=== PATIENT | female | born 1980 | race Caucasian/White ===

== ENCOUNTER 2016-10-23 12:04 | Emergency (ER) | payer MEDICAID, OTHER ==
[2016-10-23 12:15] VITALS: BP 124/86; PULSE 103; RESP 20; TEMP 98.4; O2SAT 99
[2016-10-23] MEDS ORDERED: Lidocaine 2% w Epi 1:100,000 Inj IJ ONE (12:33)
--- NOTE | 2016-10-23 12:44 | C.PDOC ---
History Of Present Illness 35 y/o female with hx of bladder prolapse c/o worsening pain and more frequent prolapse. 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 pt has not yet seen a urologist due to insurance issues. pt reports she usually pushes prolapsed part back in and it stays in for a few days, but coming out more often with worse pain to pelvic area that radiates down both legs, with frequent urination. no fever or chills. pt also reports 2 days hx of 2 loose stools per day. no nausea or vomiting Time Seen by Provider: 10/23/16 12:20 Chief Complaint (Nursing): Back Pain History Per: Patient History/Exam Limitations: no limitations Onset/Duration Of Symptoms: Days (months) Current Symptoms Are (Timing): Worse Quality Of Discomfort: "Pain" Severity: Moderate Associated Symptoms: denies: Incontinence, New Weakness, New Numbness Past Medical History Reviewed: Historical Data, Nursing Documentation, Vital Signs Vital Signs: Last Vital Signs Temp 98.4 F 10/23/16 12:13 Pulse 103 H 10/23/16 12:13 Resp 20 10/23/16 12:13 BP 124/86 10/23/16 12:13 Pulse Ox 99 10/25/16 08:04 - Medical History PMH: Anxiety, Asthma, Depression Family History: States: Unknown Family Hx - Social History Hx Tobacco Use: No Hx Alcohol Use: No Hx Substance Use: No - Immunization History Hx Tetanus Toxoid Vaccination: No Hx Influenza Vaccination: No Hx Pneumococcal Vaccination: No Review Of Systems Constitutional: Negative for: Fever, Chills Gastrointestinal: Positive for: Diarrhea. Negative for: Nausea, Vomiting, Abdominal Pain Genitourinary: Positive for: Frequency, Pelvic Pain. Negative for: Dysuria, Incontinence Physical Exam - Physical Exam Appears: Non-toxic, No Acute Distress Skin: Warm, Dry Head: Atraumatic, Normacephalic Neck: Normal ROM Chest: Symmetrical, No Deformity Cardiovascular: Rhythm Regular, No Murmur Respiratory: Normal Breath Sounds, No Rales, No Rhonchi, No Wheezing Gastrointestinal/Abdominal: Bowel Sounds, Soft, No Tenderness Back: No CVA Tenderness Pelvic: No Normal External Exam (soft mass seen proximal to introitus, able to be reduced.), No Vaginal Bleeding, Vaginal Discharge, No Adnexal Tenderness, Other (chaperoned by RN Rosie Parra) Neurological/Psych: Oriented x3, Normal Speech, Normal Cognition ED Course And Treatment O2 Sat by Pulse Oximetry: 99 Medical Decision Making Medical Decision Making: pt with 6+ month of bladder prolapse, with urinary frequency; check ua gc/ chlamydia and upreg; refer to urology Disposition Counseled Patient/Family Regarding: Studies Performed, Diagnosis, Need For Followup - Disposition Referrals: [facility] [Outside] [facility] [Outside] Bernard Owen MD [Staff Provider] - Disposition: HOME/ ROUTINE Disposition Time: 13:43 Condition: STABLE Additional Instructions: Follow up with Medical clinic and also with urologist if you are able to. Tylenol or Ibuprofen for pain if needed. Return to ER for any worsening pain, difficulty urinating or any other concerns. Instructions: Cystocele (ED) Forms: General Discharge Instructions - Clinical Impression Clinical Impression: Cystocele
[2016-10-23 13:26] LABS: SQUAMOUS EPITHIAL 2 /hpf (0-5); URINE BILIRUBIN NEGATIVE (NEGATIVE); URINE BLOOD NEGATIVE (NEGATIVE); URINE CLARITY Clear (Clear); URINE COLOR Yellow (YELLOW); URINE GLUCOSE (UA) NORMAL (Normal); URINE LEUKOCYTE ESTERASE NEG Leu/uL (Negative); URINE NITRATE NEGATIVE (NEGATIVE); URINE PROTEIN NEGATIVE (NEGATIVE); URINE UROBILINOGEN NORMAL mg/dL (0.2-1.0)
== END 2016-10-23 13:54 | disposition home or self-care (01) ==
LOC: C.ER 12:04
DX: N81.10 Cystocele, unspecified (principal)

== ENCOUNTER 2018-03-16 12:52 | Emergency (ER) | payer OTHER ==
--- NOTE | 2018-03-16 13:55 | C.PDOC ---
History Of Present Illness 37 y/o female with history of DM, High cholesterol and asthma presents to ED with c/o generalized weakness and fatigue since yesterday morning. Patient also complains of intermittent tingling and numbness to left sided of body associated with left sided headache localized to back of left eye. Patient admits to mild rhinorrhea and baseline cough secondary to smoking. Patient reprots prior headache and numbness secondary to nerve damage, last seen Dr. Whittaker on 06/2017. Patient admits to chills and x4 episodes of non bloody diarrhea, denies fever, nausea, vomiting, abdominal pain or any other complaints at this time. PMD: Dr. Young Time Seen by Provider: 03/16/18 13:27 Chief Complaint (Nursing): Weakness/Neurological Deficit History Per: Patient History/Exam Limitations: no limitations Onset/Duration Of Symptoms: Days Current Symptoms Are (Timing): Still Present Past Medical History Reviewed: Historical Data, Nursing Documentation, Vital Signs Vital Signs: Last Vital Signs Temp 98.4 F 03/16/18 13:01 Pulse 102 H 03/16/18 13:01 Resp 20 03/16/18 13:01 BP 129/93 H 03/16/18 13:01 Pulse Ox 98 03/16/18 13:01 - Medical History PMH: Anxiety, Asthma, Depression, Rheumatoid Arthritis Surgical History: No Surg Hx Family History: States: No Known Family Hx - Social History Hx Tobacco Use: No Hx Alcohol Use: Yes Hx Substance Use: No - Immunization History Hx Tetanus Toxoid Vaccination: No Hx Influenza Vaccination: No Hx Pneumococcal Vaccination: No Review Of Systems Except As Marked, All Systems Reviewed And Found Negative. (as per HPI) Constitutional: Positive for: Chills. Negative for: Fever Gastrointestinal: Positive for: Diarrhea. Negative for: Nausea, Vomiting, Abdominal Pain Neurological: Positive for: Weakness, Numbness, Headache Physical Exam - Physical Exam Appears: Non-toxic, No Acute Distress, Other (Tired appearing) Skin: Warm, Dry Head: Normacephalic, Tenderness Eye(s): bilateral: PERRL, EOMI Nose: Normal Oral Mucosa: Moist Tongue: Normal Appearing Lips: Normal Appearing Throat: No Erythema, No Exudate Neck: Normal ROM, Trachea Midline Lymphatic: No Adenopathy Chest: Symmetrical Cardiovascular: Rhythm Regular, No Edema, No Murmur Respiratory: Normal Breath Sounds, No Accessory Muscle Use, No Wheezing Gastrointestinal/Abdominal: Soft, No Tenderness Back: Normal Inspection, No Decreased ROM Extremity: Normal ROM, No Pedal Edema, No Deformity, No Swelling Neurological/Psych: Oriented x3, Normal Speech, Normal Cognition, Normal Motor (5/5), Other (subjective decreased light touch sensation to left face. no facial droop) ED Course And Treatment - Laboratory Results Result Diagrams: 03/16/18 13:59 03/16/18 13:59 O2 Sat by Pulse Oximetry: 98 (RA) Pulse Ox Interpretation: Normal Medical Decision Making Medical Decision Making: Impression: Unilateral numbness intermittent, Generalized weakness Plan: CT head w/o contrast, Influenza AB test, UA, Blood work ordered Progress: Differential Dx: Neuropathy, Viral syndrome, Atypical migraine Accession No. : [id number] Patient Name / ID : GORDON MCKINNEY / [id number] Exam Date : 03/16/2018 14:36:30 ( Approved ) Study Comment : Sex / Age : F / 37Y Creator : María Elena Wright MD Dictator : María Elena Wright MD Ditching Machine Engineer : Customer Service Voice : María Elena Wright MD Approver2 : Report Date : 03/16/2018 14:55:26 My Comment : Date of service: 03/16/2018 PROCEDURE: CT HEAD WITHOUT CONTRAST. HISTORY: Left sided headache and numbness COMPARISON: None available. TECHNIQUE: Axial computed tomography images were obtained through the head/brain without intravenous contrast. Radiation dose: Total exam DLP = 926.98 mGy-cm. This CT exam was performed using one or more of the following dose reduction techniques: Automated exposure control, adjustment of the mA and/or kV according to patient size, and/or use of iterative reconstruction technique. FINDINGS: HEMORRHAGE: No intracranial hemorrhage. BRAIN: No mass effect or edema. Zaldivar-white matter differentiation appears intact. Please note that MRI with diffusion imaging is more sensitive in the detection of acute ischemic event. VENTRICLES: No hydrocephalus. CALVARIUM: Unremarkable. PARANASAL SINUSES: Unremarkable as visualized. No significant inflammatory changes. MASTOID AIR CELLS: Unremarkable as visualized. No inflammatory changes. OTHER FINDINGS: None. IMPRESSION: No acute intracranial pathology identified. Labs unremarkable. DW pt findings. Pt stable for discharge. Rest and followup with PMD and Neuro Dr Whittaker within week. Continue flu meds given season and rest. Disposition Counseled Patient/Family Regarding: Studies Performed, Diagnosis, Need For Followup, Rx Given - Disposition Referrals: Dimas Whittaker MD [Staff Provider] - Rosalie Young MD [Medical Doctor] - Disposition: HOME/ ROUTINE Disposition Time: 15:30 Condition: STABLE Additional Instructions: REST AND DRINK PLENTY OF HYDRATING FLUIDS TAKE EXTRA STRENGTH TYLENOL OR MOTRIN FOR HEADACHE FOLLOWUP WITH DR YOUNG AND DR WHITTAKER BY THE END OF THE WEEK Prescriptions: Oseltamivir Cap [Tamiflu] 75 mg PO BID #10 cap Instructions: Headache, Adult (DC) Forms: Work Excuse - Clinical Impression Clinical Impression: Headache, Flu-like symptoms - Scribe Statement The provider has reviewed the documentation as recorded by the Maribell Mcmillan All medical record entries made by the Salvadoribjohn were at my direction and personally dictated by me. I have reviewed the chart and agree that the record accurately reflects my personal performance of the history, physical exam, medical decision making, and the department course for this patient. I have also personally directed, reviewed, and agree with the discharge instructions and disposition.
[2018-03-16 14:02] LABS: BASO # 0.1 K/uL (0.0-0.2); BASO % 0.8 % (0.0-2.0); EOS # 0.1 K/uL (0.0-0.7); EOS % 0.6 % (0.0-4.0); HEMOGLOBIN 14.3 g/dL (11.0-16.0); LYMPH # 2.1 K/uL (1.0-4.3); LYMPH % 25.9 % (20.0-40.0); MEAN CELL VOLUME 84.9 fL (81.0-99.0); MEAN CORPUSCULAR HEMOGLOBIN 28.9 pg (27.0-31.0); MEAN PLATELET VOLUME 10.1 fL (7.2-11.7); MONO # 0.4 K/uL (0.0-0.8); MONO % 4.3 % (0.0-10.0); NEUT # 5.6 K/uL (1.8-7.0); NEUT % 68.4 % (50.0-75.0); NRBC % 0.1 % (0.0-2.0); RBC 4.97 Mil/uL (3.80-5.20); RED CELL DISTRIBUTION WIDTH 13.7 % (11.5-14.5); WHITE BLOOD COUNT 8.3 K/uL (4.8-10.8)
[2018-03-16 14:10] LABS: HCG,QUALITATIVE URINE NEGATIVE (NEGATIVE)
[2018-03-16 14:14] LABS: ALBUMIN 4.4 g/dL (3.5-5.0); BLOOD UREA NITROGEN 7 mg/dL (7-17); CALCIUM 8.7 mg/dl (8.6-10.4); GFR NON-AFRICAN AMERICAN > 60; URINE BACTERIA RARE (<OCC); URINE BILIRUBIN NEGATIVE (NEGATIVE); URINE BLOOD 1+ (NEGATIVE); URINE CLARITY Clear (Clear); URINE COLOR Straw (YELLOW); URINE GLUCOSE (UA) NORMAL (Normal); URINE LEUKOCYTE ESTERASE NEG Leu/uL (Negative); URINE PROTEIN NEGATIVE (NEGATIVE); URINE UROBILINOGEN NORMAL mg/dL (0.2-1.0)
[2018-03-16 14:15] LABS: ALB/GLOB RATIO 1.4 (1.0-2.1); ALT/SGPT 39 U/L (9-52); AST/SGOT 22 U/L (14-36)
--- NOTE | 2018-03-16 14:59 | CT ---
Date of service: 03/16/2018 PROCEDURE: CT HEAD WITHOUT CONTRAST. HISTORY: Left sided headache and numbness COMPARISON: None available. TECHNIQUE: Axial computed tomography images were obtained through the head/brain without intravenous contrast. Radiation dose: Total exam DLP = 926.98 mGy-cm. This CT exam was performed using one or more of the following dose reduction techniques: Automated exposure control, adjustment of the mA and/or kV according to patient size, and/or use of iterative reconstruction technique. FINDINGS: HEMORRHAGE: No intracranial hemorrhage. BRAIN: No mass effect or edema. Zaldivar-white matter differentiation appears intact. Please note that MRI with diffusion imaging is more sensitive in the detection of acute ischemic event. VENTRICLES: No hydrocephalus. CALVARIUM: Unremarkable. PARANASAL SINUSES: Unremarkable as visualized. No significant inflammatory changes. MASTOID AIR CELLS: Unremarkable as visualized. No inflammatory changes. OTHER FINDINGS: None. IMPRESSION: No acute intracranial pathology identified.
[2018-03-16 15:48] VITALS: BP 120/88; PULSE 90; RESP 18; TEMP 98.1
[2018-03-16 16:01] VITALS: O2SAT 98
== END 2018-03-16 16:25 | disposition home or self-care (01) ==
LOC: C.ER 12:52
DX: J11.1 Influenza due to unidentified influenza virus with other respiratory manifestations (principal); R51 Headache; J45.909 Unspecified asthma, uncomplicated; E11.9 Type 2 diabetes mellitus without complications; E78.00 Pure hypercholesterolemia, unspecified; F17.210 Nicotine dependence, cigarettes, uncomplicated